=== PATIENT | male | born 1965 | race Caucasian/White ===

== ENCOUNTER 2016-08-25 13:26 | Emergency (ER) | payer OTHER, BC ==
--- NOTE | ~2016-08-25 | ER ---
PATIENT'S NAME: LO VENTURA [facility] AGE: 50 Y [address] ROOM: [place] [address] LOCATION: [facility] ADMIT DATE: 08/25/2016 ER/Outpatient Report DISCHARGE DATE: 08/25/2016 FAMILY PHYSICIAN: Ayden Cuevas MD ATTENDING PHYSICIAN: Bibiana Gutierrez Time of Arrival: 1326 hours. Time of Evaluation: 1335 hours. CHIEF COMPLAINT: Scalp laceration. HISTORY OF PRESENT ILLNESS: This is a 50-year-old male, who presents to the ER. He states he was at work today when he hit his head on a bolt. He states it knocked him back, and he felt like he almost was knocked out. He states he feels nauseated. He has no vomiting. He feels lightheaded and dizzy. He denies any neck or back pain or any other problems at this time. The patient states he is not for sure when his last tetanus shot was. He denies any other problems at this time. ALLERGIES: PENICILLIN. MEDICATIONS: None. PAST MEDICAL HISTORY: Negative. PAST SURGICAL HISTORY: Appendectomy and a kidney stone. SOCIAL HISTORY: He denies smoking or drug use. REVIEW OF SYSTEMS: All systems were reviewed and were negative with the exception of those discussed in the HPI. PHYSICAL EXAMINATION: VITAL SIGNS: Height 5 feet 7 inches stated, weight 95.4 kg taken, blood pressure is 171/94, pulse 107, respirations 18, saturations 95% on room air. Barbara Coma Score is 15. GENERAL: Alert, slightly anxious appearing 50-year-old, in mild to moderate distress due to his laceration. PATIENT'S NAME: LO VENTURA [facility] AGE: 50 Y [address] ROOM: [place] [address] LOCATION: [facility] ADMIT DATE: 08/25/2016 ER/Outpatient Report DISCHARGE DATE: 08/25/2016 FAMILY PHYSICIAN: Ayden Cuevas MD ATTENDING PHYSICIAN: Bibiana Gutierrez HEENT: Head: Normocephalic. Eyes: Pupils are equal and reactive to light. Ears: TMs display good light reflexes bilaterally. LUNGS: Clear to auscultation. HEART: Tachycardic. Normal rhythm. EXTREMITIES: No clubbing or cyanosis. He does have full range of motion of all limbs. MUSCULOSKELETAL: He has no tenderness of the cervical, thoracic, or lumbar spine. SKIN: He has a large flap-like laceration to the top of the scalp, measuring 8 cm in length. It is bleeding during the examination. LABORATORY DATA: None were done. X-RAYS: CT scan of the head was negative and reported by radiology. IMPRESSION: 1. Head injury. 2. An 8 cm scalp laceration. ASSESSMENT AND PLAN: We did cleanse the laceration with normal saline. I did anesthetize the area with 1% lidocaine with epinephrine, which did also slow down the bleeding. I was able to clean the wound thoroughly, and we did repair the laceration with richie, and the patient did tolerate this well. We did place the pressure bandage to the area and updated him on his tetanus shot. I am going to dismiss him to home with a prescription for Bouse to use as directed. He should sleep with his head in up right position, monitor his symptoms, and I would like him to follow up with his primary care physician in 7 to 10 days or sooner if anything worsens. The patient and the patient's daughter understand and agree with care. TEN MCCLENDON PA-C FOR MD JACQUI PATTERSON/kosta /[id number] d: 08/26/16 0118 t: 09/01/16 1014, OUTPATIENT REPORT
[~2016-08-25 13:26] MED LIST: ASPIRIN (CHILDR81 MG PO; LIPITOR40 MG PO; ZOLOFT50 MG PO
== END 2016-08-25 15:19 | disposition disaster alternative care site (69) ==
LOC: GACC 13:26
PROC: 0HQ0XZZ Repair Scalp Skin, External Approach (ICD-10-PCS; principal; 2016-08-25)
DX: S01.01XA Laceration without foreign body of scalp, initial encounter (principal); Z88.0 Allergy status to penicillin; Z90.49 Acquired absence of other specified parts of digestive tract; Z87.442 Personal history of urinary calculi; W22.8XXA Striking against or struck by other objects, initial encounter

== ENCOUNTER → 2016-10-02 | Outpatient (CLI) | payer OTHER, BC | END | disposition disaster alternative care site (69) | LOC: GRAD 15:06 | DX: R51 Headache (principal) ==